=== PATIENT | male | born 1960 | race Two or more races ===

== ENCOUNTER 2016-07-12 12:19 | Emergency (ER) | payer MEDICARE, OTHER ==
--- NOTE | 2016-07-12 12:52 | ER Document Report ---
ED Medical Screen (RME) - General Stated Complaint: COUGH,CONGESTION,ABDOMINAL PAIN Mode of Arrival: Ambulatory Information source: Patient Notes: Patient complains of symptoms for the past 2-1/2 weeks. Patient reports losing over 10 pounds. Patient reports feeling lightheaded with decreased appetite. hx: None I have greeted and performed a rapid initial assessment of this patient. A comprehensive ED assessment and evaluation of the patient, analysis of test results and completion of the medical decision making process will be conducted by additional ED providers. TRAVEL OUTSIDE OF THE [place] IN LAST 30 DAYS: No - Related Data Allergies/Adverse Reactions: No Known Allergies Allergy (Verified 07/12/16 12:48) Past Medical History Musculoskeltal Medical History: Reports Hx Musculoskeletal Deformity, Reports Hx Musculoskeletal Trauma - Immunizations Hx Diphtheria, Pertussis, Tetanus Vaccination: Yes Physical Exam - Vital signs Vitals: Temp Pulse Resp BP Pulse Ox 98.6 F 83 16 114/72 98 07/12/16 12:32 07/12/16 12:32 07/12/16 12:32 07/12/16 12:32 07/12/16 12:32 - Respiratory Respiratory status: No respiratory distress Breath sounds: Nonproductive cough Course - Vital Signs Vital signs: Temp Pulse Resp BP Pulse Ox 98.6 F 83 16 114/72 98 07/12/16 12:32 07/12/16 12:32 07/12/16 12:32 07/12/16 12:32 07/12/16 12:32
[2016-07-12 13:33] LABS: ABSOLUTE EOSINOPHILS # (AUTO) 0.1 10^3/uL (0.0-0.6); ABSOLUTE LYMPHOCYTES (AUTO) 1.4 10^3/uL (0.5-4.7); ABSOLUTE MONOCYTES (AUTO) 0.7 10^3/uL (0.1-1.4); ABSOLUTE NEUT (AUTO) 2.1 10^3/uL (1.7-8.2); BASOPHILS % (AUTO) 0.6 % (0-2); EOSINOPHILS % (AUTO) 3.3 % (0-6); HEMOGLOBIN 15.3 g/dL (13.5-17.0); HGB HCT DIFFERENCE 0.9; LYMPHOCYTES % (AUTO) 32.5 % (13-45); MEAN CORPUSCULAR HEMOGLOBIN 30.2 pg (27.0-33.4); MEAN CORPUSCULAR HGB CONC 33.9 g/dL (32.0-36.0); MEAN CORPUSCULAR VOLUME 89 fl (80-97); MONOCYTES % (AUTO) 15.7 % (3-13); RED BLOOD COUNT 5.05 10^6/uL (4.35-5.55); RED CELL DISTRIBUTION WIDTH 12.9 % (11.5-14.0); SEGMENTED NEUTROPHILS % (AUTO) 47.9 % (42-78); WHITE BLOOD COUNT 4.4 10^3/uL (4.0-10.5)
[2016-07-12 13:40] LABS: APPEARANCE,URINE CLEAR; BILIRUBIN,URINE NEGATIVE (NEGATIVE); GLUCOSE, URINE NEGATIVE (NEGATIVE); KETONES,URINE 20 mg/dL (NEGATIVE); LEUKOCYTE ESTERASE,URINE NEGATIVE (NEGATIVE); NITRITE,URINE NEGATIVE (NEGATIVE); PROTEIN,URINE NEGATIVE (NEGATIVE); URINE SPECIFIC GRAVITY 1.025; UROBILINOGEN,URINE NEGATIVE mg/dL (<2.0)
[2016-07-12 13:52] LABS: ALANINE AMINOTRANSFERASE 29 U/L (21-72); ALBUMIN 3.9 g/dL (3.5-5.0); ALKALINE PHOSPHATASE 84 U/L (38-126); ANION GAP 7 (5-19); ASPARTATE AMINO TRANSFERASE 25 U/L (17-59); BILIRUBIN,TOTAL 0.6 mg/dL (0.2-1.3); BLOOD UREA NITROGEN 13 mg/dL (7-20); CALCIUM 9.7 mg/dL (8.4-10.2); CARBON DIOXIDE 30 mmol/L (22-30); CHLORIDE 102 mmol/L (98-107); CREATININE RESULT 1.05 mg/dL (0.52-1.25); GLUCOSE 87 mg/dL (75-110); LIPASE 48.3 U/L (23-300); POTASSIUM 4.7 mmol/L (3.6-5.0); SODIUM 139.2 mmol/L (137-145)
--- NOTE | 2016-07-12 16:11 | ER Document Report ---
ED General - General Chief Complaint: Cold Symptoms Stated Complaint: COUGH,CONGESTION,ABDOMINAL PAIN Mode of Arrival: Ambulatory Information source: Patient Notes: 56-year-old male presents with complaints of frontal sinus pressure nasal congestion body aches sensation is head is floating. Patient denies any specific neurological deficits. Patient feels like his head is floating TRAVEL OUTSIDE OF THE [place] IN LAST 30 DAYS: No - HPI Onset: Last week Onset/Duration: Persistent Quality of pain: Achy Severity: Mild Pain Level: 1 Associated symptoms: Body/muscle aches, Nonproductive cough, Sinus pain/drainage Exacerbated by: Denies Relieved by: Denies Similar symptoms previously: No Recently seen / treated by doctor: No - Related Data Allergies/Adverse Reactions: No Known Allergies Allergy (Verified 07/12/16 12:48) Past Medical History - General Information source: Patient - Social History Smoking Status: Current Every Day Smoker Cigarette use (# per day): No Chew tobacco use (# tins/day): Yes Smoking Education Provided: No Family History: Other - Father- Colon [place] Patient has suicidal ideation: No Patient has homicidal ideation: No Renal/ Medical History: Denies: Hx Peritoneal Dialysis Musculoskeltal Medical History: Reports Hx Musculoskeletal Deformity, Reports Hx Musculoskeletal Trauma - Immunizations Hx Diphtheria, Pertussis, Tetanus Vaccination: Yes Review of Systems - Review of Systems Notes: PHYSICAL EXAMINATION: GENERAL: Well-appearing, well-nourished and in no acute distress. HEAD: Atraumatic, normocephalic. EYES: Pupils equal round and reactive to light, extraocular movements intact, sclera anicteric, conjunctiva are normal. ENT: Nares patent, oropharynx clear without exudates. Moist mucous membranes. NECK: Normal range of motion, supple without lymphadenopathy LUNGS: Breath sounds clear to auscultation bilaterally and equal. No wheezes rales or rhonchi. HEART: Regular rate and rhythm without murmurs ABDOMEN: Soft, nontender, nondistended abdomen. No guarding, no rebound. No masses appreciated. Musculoskeletal: Normal range of motion, no pitting or edema. No cyanosis. NEUROLOGICAL: Cranial nerves grossly intact. Normal speech, normal gait. Normal sensory, motor exams PSYCH: Normal mood, normal affect. SKIN: Warm, Dry, normal turgor, no rashes or lesions noted. Physical Exam - Vital signs Vitals: Temp Pulse Resp BP Pulse Ox 98.6 F 83 16 114/72 98 07/12/16 12:32 07/12/16 12:32 07/12/16 12:32 07/12/16 12:32 07/12/16 12:32 Course - Re-evaluation Re-evalutation: 07/12/16 16:09 Given that patient is having thick nasal discharge over the past week and a half , it appears to be acute sinusitis. Patient also has sensation of his head floating, denies any fevers. Denies any neurological deficits. I do not believe there is any life-threatening issues at this time. I will discharge him home on antibiotics with close follow-up with his primary care physician. Patient does also admit that over the past 10 years he has had issues with depression, I offered him mental health evaluation but he defers at this time. States he has seen people in the past and will follow up with them Patient denies any suicidal homicidal ideations and I believe he is stable for discharge After performing a Medical Screening Examination, I estimate there is LOW risk for ACUTE GLAUCOMA, TEMPORAL ARTERITIS, MENINGITIS, INCRANIAL HEMORRHAGE, or ISCHEMIC STROKE thus I consider the discharge disposition reasonable. The patient and I have discussed the diagnosis and risks, and we agree with discharging home with close follow-up with the understanding that symptoms and presentations can change. We also discussed returning to the Emergency Department immediately if new or worsening symptoms occur. We have discussed the symptoms which are most concerning (e.g., changing or worsening symptoms, new numbness or weakness, vomiting, fever) that necessitate immediate return. - Vital Signs Vital signs: Temp Pulse Resp BP Pulse Ox 98.6 F 83 16 114/72 98 07/12/16 12:32 07/12/16 12:32 07/12/16 12:32 07/12/16 12:32 07/12/16 12:32 - Laboratory Result Diagrams: 07/12/16 13:05 07/12/16 13:05 Laboratory results interpreted by me: 07/12/16 07/12/16 13:05 13:05 Monocytes % 15.7 H Urine Ketones 20 H Discharge - Discharge Clinical Impression: Acute sinusitis Qualifiers: Sinusitis location: unspecified location Recurrence: recurrent Qualified Code(s ): J01.91 - Acute recurrent sinusitis, unspecified URI (upper respiratory infection) Qualifiers: URI type: unspecified URI Qualified Code(s): J06.9 - Acute upper respiratory infection, unspecified Condition: Stable Disposition: HOME, SELF-CARE Instructions: Sinusitis ([facility]) Additional Instructions: Follow up with your physician tomorrow for further care or return to the ED IMMEDIATELY if symptoms worsen or new concerns occur Prescriptions: Amoxicillin 875 mg PO BID #20 tablet
[2016-07-12 16:13] VITALS: BP 107/74
== END 2016-07-12 16:14 | disposition home or self-care (01) ==
LOC: ER 12:19
DX: J01.91 Acute recurrent sinusitis, unspecified (principal); J06.9 Acute upper respiratory infection, unspecified; F32.9 Major depressive disorder, single episode, unspecified; M79.1 Myalgia; R05 Cough; F17.200 Nicotine dependence, unspecified, uncomplicated
CPT/HCPCS: 36415; 71020; 80053; 81001; 83690; 85025; 87804; 99283

== ENCOUNTER 2016-08-19 11:17 | Emergency (ER) | payer MEDICARE, OTHER ==
--- NOTE | 2016-08-19 11:28 | ER Document Report ---
ED Medical Screen (RME) - General Stated Complaint: ANXIETY Notes: Patient brought in by EMS today for increased anxiety. States recent loss of friend, and mother is hospitalized. Patient has a history of depression/anxiety , bipolar, PTSD, currently does not take any medications and does not have a primary care provider. Patient denies suicidal or homicidal ideation. Patient does state he wonders what the world would be like without him. I have greeted and performed a rapid initial assessment of this patient. A comprehensive ED assessment and evaluation of the patient, analysis of test results and completion of the medical decision making process will be conducted by additional ED providers. TRAVEL OUTSIDE OF THE [place] IN LAST 30 DAYS: No - Related Data Allergies/Adverse Reactions: No Known Allergies Allergy (Verified 08/19/16 11:24) Past Medical History Renal/ Medical History: Denies: Hx Peritoneal Dialysis Musculoskeltal Medical History: Reports Hx Musculoskeletal Deformity, Reports Hx Musculoskeletal Trauma - Immunizations Hx Diphtheria, Pertussis, Tetanus Vaccination: Yes Physical Exam - Notes Notes: Patient with flat affect, and makes no eye contact.
[2016-08-19] MEDS ORDERED: LORAZEPAM 1 MG TABLET PO ONE (12:38)
--- NOTE | 2016-08-19 12:57 | ER Document Report ---
ED Psych Disorder / Suicide - General Mode of Arrival: Medic Information source: Patient TRAVEL OUTSIDE OF THE [place] IN LAST 30 DAYS: No - HPI Patient complains to provider of: Other - Anxiety Onset: Other - Acutely worse over recent weeks Onset was: Gradual Suicide Risk Factors: Bipolar, Depressed Situational problems related to: Recent Associated symptoms: Anxious, Depressed - General Chief Complaint: Anxiety Stated Complaint: ANXIETY Notes: Patient is a 56-year-old male presenting to the emergency department concerned of increased anxiety over recent weeks. Patient has a history of bipolar disorder, PTSD, and depression, but has been unmedicated for over 10 years. Patient states that he has had problems without his medications including being hyper concerned about his health, , and the end of time. Patient states he is constantly dreaming of dying and he cries daily. Patient also has multiple new stressors including his best friend dying recently, and his mother is in the hospital with a possible terminal illness. Patient denies any suicidal ideation. Patient states that he smokes approximately 30 cigarettes a day. (KEMAL MEANS) - Related Data Allergies/Adverse Reactions: No Known Allergies Allergy (Verified 08/19/16 11:24) Past Medical History - General Information source: Patient - Social History Smoking Status: Current Every Day Smoker Chew tobacco use (# tins/day): No Frequency of alcohol use: Occasional Drug Abuse: None Family History: Reviewed & Not Pertinent, Other - Father- Colon [place] Patient has suicidal ideation: No Patient has homicidal ideation: No Renal/ Medical History: Denies: Hx Peritoneal Dialysis Musculoskeltal Medical History: Reports Hx Musculoskeletal Deformity, Reports Hx Musculoskeletal Trauma Psychiatric Medical History: Reports: Hx Anxiety, Hx Bipolar Disorder, Hx Depression - Immunizations Hx Diphtheria, Pertussis, Tetanus Vaccination: Yes Review of Systems - Review of Systems Constitutional: No symptoms reported EENT: No symptoms reported Cardiovascular: No symptoms reported Respiratory: No symptoms reported Gastrointestinal: No symptoms reported Genitourinary: No symptoms reported Male Genitourinary: No symptoms reported Musculoskeletal: No symptoms reported Skin: No symptoms reported Hematologic/Lymphatic: No symptoms reported Neurological/Psychological: See HPI, Depression, Anxiety. denies: Suicidal ideation -: Yes All other systems reviewed and negative Physical Exam - General General appearance: Alert, Other - Poor eye contact - HEENT Head: Normocephalic, Atraumatic Eyes: Normal Pupils: PERRL - Respiratory Respiratory status: No respiratory distress Chest status: Nontender Breath sounds: Normal Chest palpation: Normal - Cardiovascular Rhythm: Regular Heart sounds: Normal auscultation Murmur: No - Abdominal Inspection: Normal Distension: No distension Bowel sounds: Normal Tenderness: Nontender Organomegaly: No organomegaly - Back Back: Normal, Nontender - Extremities General upper extremity: Normal inspection, Nontender General lower extremity: Normal inspection, Nontender, Normal weight bearing - Neurological Neuro grossly intact: Yes Cognition: Normal Orientation: AAOx4 Reynaldo Coma Scale Eye Opening: Spontaneous [place] Coma Scale Verbal: Oriented Reynaldo Coma Scale Motor: Obeys Commands Reynaldo Coma Scale Total: 15 Speech: Normal - Psychological Associated symptoms: Normal affect, Anxious, Depressed - Skin Skin Temperature: Warm Skin Moisture: Dry Skin Color: Normal Course - Re-evaluation Re-evalutation: 08/19/16 14:57 I was looking for the patient when I did not see him in his hallway struck bed. I found that he had been ordered Ativan by another physician. He received the Ativan shortly after I saw him. His spouse had requested something for his nerves while I was in the room, I told her I would prefer that that he wait for the psychology staff to see him first. Shortly after that he was given Ativan without my knowledge. Looking through the nurse's notes I find that the patient had eloped 30 minutes ago, but I was never told of this. (ASTRID BROCK) - Vital Signs Vital signs: Temp Pulse Resp BP Pulse Ox 97.9 F 67 16 97/66 L 100 08/19/16 11:24 08/19/16 11:24 08/19/16 11:24 08/19/16 11:24 08/19/16 11:24 Discharge - Discharge Clinical Impression: Anxiety Disposition: ELOPED Instructions: Anxiety ([facility]) Scribe Attestation: 08/19/16 14:59 I personally performed the services described in the documentation, reviewed and edited the documentation which was dictated to the scribe in my presence, and it accurately records my words and actions. (ASTRID BROCK) Scribe Documentation - Scribe Written by Janae:: Kemal Means 08/19/2016 1252 acting as scribe for :: Marielle
[2016-08-19 14:34] VITALS: BP 97/66
== END 2016-08-19 13:30 | disposition left against medical advice (07) ==
LOC: ER 11:17
DX: F41.9 Anxiety disorder, unspecified (principal); F32.9 Major depressive disorder, single episode, unspecified; F17.210 Nicotine dependence, cigarettes, uncomplicated; Z53.20 Procedure and treatment not carried out because of patient's decision for unspecified reasons
CPT/HCPCS: 99281; A9270

== ENCOUNTER 2019-02-26 05:56 | Observation (INO) | payer MEDICARE, OTHER ==
[2019-02-26 07:49] LABS: ABSOLUTE EOSINOPHILS # (AUTO) 0.2 10^3/uL (0.0-0.6); ABSOLUTE LYMPHOCYTES (AUTO) 2.3 10^3/uL (0.5-4.7); ABSOLUTE MONOCYTES (AUTO) 0.6 10^3/uL (0.1-1.4); ABSOLUTE NEUT (AUTO) 4.1 10^3/uL (1.7-8.2); BASOPHILS % (AUTO) 0.4 % (0-2); EOSINOPHILS % (AUTO) 2.8 % (0-6); HEMATOCRIT 43.2 % (37.9-51.0); HEMOGLOBIN 14.6 g/dL (13.5-17.0); LYMPHOCYTES % (AUTO) 31.7 % (13-45); MEAN CORPUSCULAR HEMOGLOBIN 30.4 pg (27.0-33.4); MEAN CORPUSCULAR HGB CONC 33.9 g/dL (32.0-36.0); MEAN CORPUSCULAR VOLUME 90 fl (80-97); MONOCYTES % (AUTO) 7.7 % (3-13); PLATELET COUNT 252 10^3/uL (150-450); RED BLOOD COUNT 4.82 10^6/uL (4.35-5.55); SEGMENTED NEUTROPHILS % (AUTO) 57.4 % (42-78); TOTAL CELLS COUNTED % (AUTO) 100 %; WHITE BLOOD COUNT 7.1 10^3/uL (4.0-10.5)
[2019-02-26 08:07] LABS: ALBUMIN 4.2 g/dL (3.5-5.0); ALKALINE PHOSPHATASE 80 U/L (38-126); ANION GAP 6 (5-19); ASPARTATE AMINO TRANSFERASE 28 U/L (17-59); BILIRUBIN,DIRECT 0.1 mg/dL (0.0-0.4); BILIRUBIN,TOTAL 0.4 mg/dL (0.2-1.3); BLOOD UREA NITROGEN 18 mg/dL (7-20); CALCIUM 9.7 mg/dL (8.4-10.2); CARBON DIOXIDE 29 mmol/L (22-30); CHLORIDE 105 mmol/L (98-107); GLUCOSE 98 mg/dL (75-110); POTASSIUM 4.9 mmol/L (3.6-5.0); TOTAL PROTEIN 7.3 g/dL (6.3-8.2)
[2019-02-26 08:15] LABS: APPEARANCE,URINE CLEAR; BILIRUBIN,URINE NEGATIVE (NEGATIVE); COLOR,URINE YELLOW; GLUCOSE, URINE NEGATIVE (NEGATIVE); KETONES,URINE NEGATIVE (NEGATIVE); LEUKOCYTE ESTERASE,URINE NEGATIVE (NEGATIVE); NITRITE,URINE NEGATIVE (NEGATIVE); PROTEIN,URINE NEGATIVE (NEGATIVE); UROBILINOGEN,URINE NEGATIVE mg/dL (<2.0)
[2019-02-26] MEDS ORDERED: FENTANYL CITRATE INJ/PF 100 MCG/2 ML AMPUL IV ONE (09:08)
--- NOTE | 2019-02-26 09:11 | ER Document Report ---
ED General - General Chief Complaint: Epigastric Pain Stated Complaint: STOMACH PAIN Time Seen by Provider: 02/26/19 08:50 TRAVEL OUTSIDE OF THE [place] IN LAST 30 DAYS: No - HPI Notes: Patient is a 58-year-old male who presents emergency department for evaluation of epigastric pain. Pain is been ongoing for about 2 days. He states that it seems to be worse at night when he lays down. Every morning at about 330 he wakes up with significant pain. He describes as a pressure. It radiates to his back with position, but otherwise is nonradiating. He had a normal bowel movement yesterday. No fevers or chills. Some very mild nausea but no emesis. Normal urination. - Related Data Allergies/Adverse Reactions: No Known Allergies Allergy (Verified 08/19/16 11:24) Home Medications: None Past Medical History - General Information source: Patient - Social History Smoking Status: Current Every Day Smoker Frequency of alcohol use: Rare Family History: Reviewed & Not Pertinent, DM, Other - Father- Colon [place] Patient has suicidal ideation: No Patient has homicidal ideation: No Renal/ Medical History: Denies: Hx Peritoneal Dialysis Musculoskeletal Medical History: Reports Hx Musculoskeletal Deformity, Reports Hx Musculoskeletal Trauma Psychiatric Medical History: Reports: Hx Anxiety, Hx Bipolar Disorder, Hx Depression - Immunizations Hx Diphtheria, Pertussis, Tetanus Vaccination: Yes Review of Systems - Review of Systems Constitutional: No symptoms reported EENT: No symptoms reported Cardiovascular: No symptoms reported Respiratory: No symptoms reported Gastrointestinal: See HPI Genitourinary: No symptoms reported Musculoskeletal: No symptoms reported Skin: No symptoms reported Neurological/Psychological: No symptoms reported Physical Exam - Vital signs Vitals: Temp Pulse Resp BP Pulse Ox 98.4 F 65 16 117/70 99 02/26/19 06:02 02/26/19 06:02 02/26/19 06:02 02/26/19 06:02 02/26/19 06:02 - Notes Notes: Vital signs reviewed, please refer to chart. Head is normocephalic, atraumatic. Pupils equal round, reactive to light. Neck is supple without meningismus. Heart is regular rate and rhythm. Lungs are clear to auscultation bilaterally. Abdomen is soft, moderately tender in the epigastrium and right upper quadrant without rebound or guarding, normoactive bowel sounds throughout. Extremities without cyanosis, clubbing. Posterior calves are nontender. Peripheral pulses are equal. Skin is warm and dry. Patient is awake, alert, neurological exam is nonfocal. Course - Re-evaluation Re-evalutation: 02/26/19 09:10 Presents emergency department for evaluation. Laboratory investigations were obtained. The patient does have an elevated lipase. Did order pain medication, CT scan of the abdomen pelvis with IV contrast. Patient was told that he needs to remain n.p.o., we will continue to monitor. 02/26/19 12:58 Laboratory investigations did in fact confirm pink otitis, but CT scan failed to reveal any significant process. I do not have a clear etiology for this patient's pancreatitis at this time, but I do not believe he is surgical. He remained stable. He is kept n.p.o. He is given IV fluids. I spoke with Dr. Lacey, then Anna Browning, ANTONIO, who will admit the patient for further care. - Vital Signs Vital signs: Temp Pulse Resp BP Pulse Ox 98.4 F 65 16 117/70 99 02/26/19 06:02 02/26/19 06:02 02/26/19 06:02 02/26/19 06:02 02/26/19 06:02 - Laboratory Result Diagrams: 02/26/19 07:35 02/26/19 07:35 Laboratory results interpreted by me: 02/26/19 07:35 Lipase 1003.2 H Discharge - Discharge Clinical Impression: Acute pancreatitis Condition: Stable Disposition: ADMITTED OBSERVATION Admitting Provider: Deepthi (Hospitalist) Unit Admitted: Medical Floor
--- NOTE | 2019-02-26 10:13 | RADIOLOGY REPORT (SQ) ---
EXAM DESCRIPTION: CT ABD/PELVIS WITH IV ONLY COMPLETED DATE/TIME: 02/26/2019 9:52 am REASON FOR STUDY: pancreatitis COMPARISON: None. TECHNIQUE: CT scan of the abdomen and pelvis performed using helical scanning technique with dynamic intravenous contrast injection. No oral contrast. Images reviewed with lung, soft tissue, and bone windows. Reconstructed coronal and sagittal MPR images reviewed. Delayed images for evaluation of the urinary system also acquired. All images stored on PACS. All CT scanners at this facility use dose modulation, iterative reconstruction, and/or weight based d osing when appropriate to reduce radiation dose to as low as reasonably achievable (ALARA). [facility]: Dose Right [facility]: CareDose [facility]: Dose Right [facility]: Teradose 4D [facility]: Bedi OralCare CONTRAST TYPE AND DOSE: Contrast/concentration: Isovue 350.00 mg/ml; Total Contrast Delivered: 89.0 ml; Total Saline Delivered: 70.0 ml RENAL FUNCTION: Creatinine 1.14 milligrams/deciliter RADIATION DOSE: CT Rad equipment meets quality standard of care and radiation dose reduction techniq ues were employed. CTDIvol: 4.1 - 4.8 mGy. DLP: 418 mGy-cm.. LIMITATIONS: None. FINDINGS: LOWER CHEST: Fat containing left Bochdalek's hernia. There is no basilar consolidation, p leural effusion or pneumothorax. There is mild cardiomegaly ; there is no pericardial effusion. LIVER: The liver morphology is non cirrhotic. The relative hypoattenuation of hepatic parenchyma com pared to the splenic parenchyma on the portal venous phase is suggestive of hepatic steatosis. The s ubcentimeter hypodensities scattered throughout the right hepatic lobe are nonspecific and are consid ered too small to characterize. The portal and hepatic veins are patent. SPLEEN: No splenomegaly. PANCREAS: No acute abnormality of the pancreas GALLBLADDER: No abnormality that is apparent on CT. ADRENAL GLANDS: No mass or focal asymmetry. RIGHT KIDNEY AND URETER: No solid masses, hydronephrosis, nephrolithiasis, hydroureter or ureterolith iasis. 1.9 cm simple cyst that projects from the inferior medial cortex of the kidney. LEFT KIDNEY AND URETER: No solid masses, hydronephrosis, nephrolithiasis, hydroureter or ureterolithi asis. AORTA AND VESSELS: No aneurysmal dilatation or dissection of the abdominal aorta. The abdominopelvic vasculature is patent RETROPERITONEUM: No retroperitoneal adenopathy, mass or hemorrhage BOWEL AND PERITONEAL CAVITY: No evidence of obstruction, bowel wall thickening, or pericolonic/ perie nteric inflammation. No mesenteric adenopathy or free intraperitoneal fluid. APPENDIX: Normal. PELVIS: The urinary bladder is distended and normal in appearance. The prostate gland is normal in s ize. There is no pelvic adenopathy, free fluid or mass. ABDOMINAL WALL: No masses or hernias. BONES: Degenerative spondylosis and facet arthropathy of the lumbar spine with grade 1 retrolisthesis of L5 relative to S1. There is no fracture or osseous lesion. OTHER: No other finding. IMPRESSION: 1. No acute intra-abdominal abnormality. 2. Mild cardiomegaly. TECHNICAL DOCUMENTATION: JOB ID: [id number] Quality ID # [id number]: Final reports with documentation of one or more dose reduction techniques (e.g., Au tomated exposure control, adjustment of the mA and/or kV according to patient size, use of iterative reconstruction technique) 2010 [employer]- All Rights Reserved Reading location - IP/workstation name: [email or web address]
[2019-02-26] MEDS ORDERED: NORMAL SALINE 1000 ML 1,000 ML IV ONE (11:42)
[2019-02-26] MEDS ORDERED: MAG HYDROX/AL HYDROX/SIMETH SUSP 30 ML UDCUP PO PRN (14:06)
[2019-02-26] MEDS ORDERED: OXYCODONE-ACETAMINOPHEN 5-325 MG TABLET PO PRN (14:06)
[2019-02-26] MEDS ORDERED: GLUCAGON,HUMAN RECOMB 1 MG INJ SUBCUT PRN (14:06)
[2019-02-26] MEDS ORDERED: ACETAMINOPHEN 325 MG TABLET PO PRN (14:06)
[2019-02-26] MEDS ORDERED: DEXTROSE 50%-WATER 25 GM/50 ML DISP.SYRIN IV PRN ×2 (14:06)
[2019-02-26] MEDS ORDERED: PROMETHAZINE HCL INJ 25 MG/1 ML VIAL IV PRN (14:06)
[2019-02-26] MEDS ORDERED: DEXTROSE 40% GEL 15 GM TUBE PO PRN ×2 (14:06)
[2019-02-26] MEDS ORDERED: IPRATROPIUM/ALBUTEROL 0.5-2.5 MG/3 ML AMPUL NEB PRN (14:06)
[2019-02-26] MEDS ORDERED: ONDANSETRON HCL INJ/PF 4 MG/2 ML SDV IV PRN (14:06)
[2019-02-26] MEDS ORDERED: MORPHINE SULFATE 10 MG/ML INJ IV PRN (14:52)
--- NOTE | 2019-02-26 15:02 | PDOC H&P ---
History of Present Illness Admission Date/PCP: 02/26/19 13:14 Patient complains of: Abdominal pain History of Present Illness: MARLIN LESTER is a 58 year old male who reports that his only past medical history is tobacco dependence with continuous use (1-1/2 packs daily) who presented to the emergency department with report of 2 days of epigastric abdominal pain, worse at night and after meals, associated with nausea but no emesis. He reports anorexia related to discomfort. He denies fever, chills, chest pain, dyspnea, diarrhea. He does confirm binge drinking on Monday (day prior to onset of symptoms); he reports that he rarely drinks alcohol. Evaluation in the emergency department revealed stable vital signs, unremarkable CBC, chemistry, and urinalysis. However lipase was noted to be elevated to 1003. CT of the abdomen and pelvis demonstrated mild cardiomegaly but no acute intra-abdominal abnormalities. Specifically there were no acute abnormalities to the pancreas or gallbladder on CT imagining. The patient was provided analgesics and a 1 L normal saline bolus. He is referred to the hospitalist service for admission and management of the above- stated complaints and findings. Past Medical History Cardiac Medical History: Reports: None Pulmonary Medical History: Reports: None EENT Medical History: Reports: None Neurological Medical History: Reports: None Endocrine Medical History: Reports: None Renal/ Medical History: Reports: None Malignancy Medical History: Reports: None GI Medical History: Reports: None Musculoskeltal Medical History: Reports: None Skin Medical History: Reports: None Psychiatric Medical History: Reports: Tobacco Dependency Traumatic Medical History: Reports: None Hematology: Reports: None Infectious Medical History: Reports: None Past Surgical History Past Surgical History: Reports: None Social History Information Source: Patient Lives with: Alone Smoking Status: Current Every Day Smoker Cigarettes Packs Per Day: 1.5 Frequency of Alcohol Use: Rare Last Alcohol Use: 02/23/19 Hx Recreational Drug Use: No Drugs: None Hx Prescription Drug Abuse: No - Advance Directive Resuscitation Status: Full Code Family History Family History: Reviewed & Not Pertinent, DM, Other - Father- Colon CA Parental Family History Reviewed: Yes Children Family History Reviewed: Yes Sibling(s) Family History Reviewed.: Yes Medication/Allergy Home Medications: No Home Medications 02/26/19 Allergies/Adverse Reactions: No Known Allergies Allergy (Verified 08/19/16 11:24) Review of Systems Constitutional: PRESENT: anorexia. ABSENT: chills, fever(s), headache(s), weight gain, weight loss Eyes: ABSENT: visual disturbances Ears: ABSENT: hearing changes Cardiovascular: ABSENT: chest pain, dyspnea on exertion, edema, orthropnea, palpitations Respiratory: ABSENT: cough, hemoptysis Gastrointestinal: PRESENT: abdominal pain, bloating, heartburn, nausea. ABSENT: constipation, diarrhea, hematemesis, hematochezia, vomiting Genitourinary: ABSENT: dysuria, hematuria Musculoskeletal: ABSENT: joint swelling Integumentary: ABSENT: rash, wounds Neurological: ABSENT: abnormal gait, abnormal speech, confusion, dizziness, focal weakness, syncope Psychiatric: ABSENT: anxiety, depression, homidical ideation, suicidal ideation Endocrine: ABSENT: cold intolerance, heat intolerance, polydipsia, polyuria Hematologic/Lymphatic: ABSENT: easy bleeding, easy bruising Physical Exam Vital Signs: Temp Pulse Resp BP Pulse Ox 98.4 F 65 16 117/70 99 02/26/19 06:02 02/26/19 06:02 02/26/19 06:02 02/26/19 06:02 02/26/19 06:02 Intake & Output 02/25/19 02/26/19 02/27/19 06:59 06:59 06:59 Intake Total 1000 Balance 1000 Weight 77.8 kg General appearance: PRESENT: no acute distress, cooperative, well-developed, well-nourished Head exam: PRESENT: atraumatic, normocephalic Eye exam: PRESENT: conjunctiva pink, EOMI, PERRLA. ABSENT: scleral icterus Ear exam: PRESENT: normal external ear exam Mouth exam: PRESENT: moist, tongue midline Neck exam: ABSENT: carotid bruit, JVD, lymphadenopathy, thyromegaly Respiratory exam: PRESENT: clear to auscultation adela, symmetrical, unlabored. ABSENT: rales, rhonchi, wheezes Cardiovascular exam: PRESENT: RRR, +S1, +S2. ABSENT: diastolic murmur, rubs, systolic murmur Pulses: PRESENT: normal dorsalis pedis pul Vascular exam: PRESENT: normal capillary refill GI/Abdominal exam: PRESENT: normal bowel sounds, soft. ABSENT: distended, guarding, mass, organolmegaly, rebound, tenderness Rectal exam: PRESENT: deferred Extremities exam: PRESENT: full ROM. ABSENT: calf tenderness, clubbing, pedal edema Neurological exam: PRESENT: alert, awake, oriented to person, oriented to place, oriented to time, oriented to situation, CN II-XII grossly intact. ABSENT: motor sensory deficit Psychiatric exam: PRESENT: appropriate affect, normal mood. ABSENT: homicidal ideation, suicidal ideation Skin exam: PRESENT: dry, intact, warm. ABSENT: cyanosis, rash Results Laboratory Results: 02/26/19 07:35 02/26/19 07:35 02/26/19 02/26/19 02/26/19 07:35 07:35 07:35 WBC 7.1 RBC 4.82 Hgb 14.6 Hct 43.2 MCV 90 MCH 30.4 MCHC 33.9 RDW 13.0 Plt Count 252 Seg Neutrophils % 57.4 Sodium 140.2 Potassium 4.9 Chloride 105 Carbon Dioxide 29 Anion Gap 6 BUN 18 Creatinine 1.14 Est GFR ( Amer) > 60 Glucose 98 Calcium 9.7 Total Bilirubin 0.4 AST 28 Alkaline Phosphatase 80 Total Protein 7.3 Albumin 4.2 Lipase 1003.2 H Urine Color YELLOW Urine Appearance CLEAR Urine pH 6.0 Ur Specific [place] 1.020 Urine Protein NEGATIVE Urine Glucose (UA) NEGATIVE Urine Ketones NEGATIVE Urine Blood NEGATIVE Urine Nitrite NEGATIVE Ur Leukocyte Esterase NEGATIVE Urine WBC (Auto) 1 Urine RBC (Auto) 1 Impressions: Abdomen/Pelvis CT 02/26/19 09:08 IMPRESSION: 1. No acute intra-abdominal abnormality. 2. Mild cardiomegaly. Assessment and Plan - Diagnosis (1) Acute pancreatitis Qualifiers: Pancreatitis type: unspecified pancreatitis type Is this a current diagnosis for this admission?: Yes (2) Tobacco dependence Is this a current diagnosis for this admission?: Yes (3) Nausea Is this a current diagnosis for this admission?: Yes (4) Abdominal pain Qualifiers: Abdominal location: epigastric Qualified Code(s): R10.13 - Epigastric pain Is this a current diagnosis for this admission?: Yes - Plan Summary Summary: The patient is admitted to the medical floor. He is placed in n.p.o. status with the exception of ice chips. He will be provided generous IV fluids. Analgesics and antiemetics as needed. Follow-up chemistry and lipase in the morning. Additionally will check A1c and lipid panel; however, I suspect that the patient's pancreatitis is related to his binge drinking the night prior to onset of his symptoms. If lipase is stable or improved tomorrow; will advance to clear liquid diet in the morning. If tolerates well may consider discharge to home with oral medications for further symptom management. He is counseled on smoking cessation; nicotine replacement therapies are provided. - Time Time Spent with patient: 35 or more minutes Smoking Cessation Education: 3 to 10 minutes Medications reviewed and adjusted accordingly: Yes Anticipated discharge: Home Within: within 24 hours
[2019-02-26] MEDS: NICOTINE 21 MG/24 HR PATCH.TD24 TD SCH (15:23)
[2019-02-26 17:06] LABS: CHOLESTEROL 154.24 mg/dL (0-200); TRIGLYCERIDES 42 mg/dL (<150)
[2019-02-26 17:17] LABS: DIRECT LDL 99 mg/dL (<100)
[2019-02-26] MEDS: NORMAL SALINE 1000 ML 1,000 ML IV PRN (20:12)
[2019-02-26] MEDS: HEPARIN SOD (PORCINE) 5,000 UNIT/ML 1 ML VIAL SUBCUT SCH (21:39)
[2019-02-26] MEDS ORDERED: MELATONIN 3 MG TABLET PO SCH (22:00)
[2019-02-27] MEDS: NORMAL SALINE 1000 ML 1,000 ML IV PRN (02:30)
[2019-02-27] MEDS: HEPARIN SOD (PORCINE) 5,000 UNIT/ML 1 ML VIAL SUBCUT SCH (05:44)
[2019-02-27 07:59] LABS: HEMATOCRIT 40.1 % (37.9-51.0); HEMOGLOBIN 13.7 g/dL (13.5-17.0); MEAN CORPUSCULAR HEMOGLOBIN 30.2 pg (27.0-33.4); MEAN CORPUSCULAR HGB CONC 34.1 g/dL (32.0-36.0); MEAN CORPUSCULAR VOLUME 89 fl (80-97); PLATELET COUNT 222 10^3/uL (150-450); RED BLOOD COUNT 4.53 10^6/uL (4.35-5.55); RED CELL DISTRIBUTION WIDTH 12.8 % (11.5-14.0); WHITE BLOOD COUNT 5.6 10^3/uL (4.0-10.5)
[2019-02-27 08:17] VITALS: BP 116/66
[2019-02-27 08:21] LABS: ANION GAP 7 (5-19); BLOOD UREA NITROGEN 12 mg/dL (7-20); CALCIUM 8.8 mg/dL (8.4-10.2); CARBON DIOXIDE 24 mmol/L (22-30); CHLORIDE 107 mmol/L (98-107); POTASSIUM 4.5 mmol/L (3.6-5.0)
[2019-02-27 08:27] LABS: GLUCOSE 65 mg/dL (75-110)
[2019-02-27] MEDS ORDERED: PANTOPRAZOLE SODIUM 40 MG VIAL IV SCH (10:00)
[2019-02-27] MEDS: NICOTINE 21 MG/24 HR PATCH.TD24 TD SCH (10:07)
--- NOTE | 2019-03-02 12:32 | PDOC DISCHARGE SUMMARY ---
Impression - Admit/DC Date/PCP Admission Date/Primary Care Provider: 02/26/19 13:14 Discharge Date: 02/27/19 - Discharge Diagnosis (1) Acute pancreatitis Is this a current diagnosis for this admission?: Yes (2) Tobacco dependence Is this a current diagnosis for this admission?: Yes (3) Nausea Is this a current diagnosis for this admission?: Yes (4) Abdominal pain Is this a current diagnosis for this admission?: Yes - Additional Information Resuscitation Status: Full Code Discharge Diet: As Tolerated, Regular Discharge Activity: Activity As Tolerated, Balance Activity w/Rest, Slowly Incr ease Activity Referrals: JEREMY MORAN MD [NO LOCAL MD] - 03/08/19 10:30 am Home Medications: Acetaminophen [Tylenol 325 mg Tablet] 650 mg PO Q4HP PRN tablet 02/27/19 Nicotine [Nicoderm 21 mg/24 Hr Transderm Patch] 1 each TD DAILY #0 patch.td24 02/27/19 History of Present Illiness History of Present Illness: MARLIN LESTER is a 58 year old male who reports that his only past medical history is tobacco dependence with continuous use (1-1/2 packs daily) who presented to the emergency department with report of 2 days of epigastric abdominal pain, worse at night and after meals, associated with nausea but no emesis. He reports anorexia related to discomfort. He denies fever, chills, chest pain, dyspnea, diarrhea. He does confirm binge drinking on Monday (day prior to onset of symptoms); he reports that he rarely drinks alcohol. Evaluation in the emergency department revealed stable vital signs, unremarkable CBC, chemistry, and urinalysis. However lipase was noted to be elevated to 1003. CT of the abdomen and pelvis demonstrated mild cardiomegaly but no acute intra-abdominal abnormalities. Specifically there were no acute abnormalities to the pancreas or gallbladder on CT imagining. The patient was provided analgesics and a 1 L normal saline bolus. He is referred to the hospitalist service for admission and management of the above- stated complaints and findings. Hospital Course Hospital Course: The patient was admitted to the medical floor. He was placed in n.p.o. status with the exception of ice chips and provided generous IV fluids. Analgesics and antiemetics as needed. Follow-up chemistry and lipase in the morning were normal. Patient's A1c was 5.7%. Lipid panel was normal. I suspect that the patient's pancreatitis is related to his binge drinking the night prior to onset of his symptoms. At time of discharge, the patient was in stable condition, asymptomatic, and tolerating a regular diet. He is discharged home in stable condition with self-care. He is advised to follow-up with his primary care provider within 1 week. He is instructed to avoid all alcohol intake, and eat a low acidic/fat diet. He is encouraged to return to the emergency department as needed for concerning symptoms. Physical Exam Vital Signs: Temp Pulse Resp BP Pulse Ox 97.5 F 95 17 116/66 95 02/27/19 11:27 02/27/19 11:27 02/27/19 11:27 02/27/19 11:27 02/27/19 11:27 Intake & Output 02/26/19 02/27/19 02/28/19 06:59 06:59 06:59 Intake Total 1945 Output Total 0 Balance 1945 Weight 77.8 kg 77.4 kg General appearance: PRESENT: no acute distress, well-developed, well-nourished Head exam: PRESENT: atraumatic, normocephalic Eye exam: PRESENT: conjunctiva pink, EOMI, PERRLA. ABSENT: scleral icterus Ear exam: PRESENT: normal external ear exam Mouth exam: PRESENT: moist, tongue midline Neck exam: ABSENT: carotid bruit, JVD, lymphadenopathy, thyromegaly Respiratory exam: PRESENT: clear to auscultation adela. ABSENT: rales, rhonchi, wheezes Cardiovascular exam: PRESENT: RRR. ABSENT: diastolic murmur, rubs, systolic murmur Pulses: PRESENT: normal dorsalis pedis pul Vascular exam: PRESENT: normal capillary refill GI/Abdominal exam: PRESENT: normal bowel sounds, soft. ABSENT: distended, guarding, mass, organolmegaly, rebound, tenderness Rectal exam: PRESENT: deferred Extremities exam: PRESENT: full ROM. ABSENT: calf tenderness, clubbing, pedal edema Neurological exam: PRESENT: alert, awake, oriented to person, oriented to place, oriented to time, oriented to situation, CN II-XII grossly intact. ABSENT: motor sensory deficit Psychiatric exam: PRESENT: appropriate affect, normal mood. ABSENT: homicidal ideation, suicidal ideation Skin exam: PRESENT: dry, intact, warm. ABSENT: cyanosis, rash Results Laboratory Results: WBC 5.6 10^3/uL (4.0-10.5) 02/27/19 06:57 RBC 4.53 10^6/uL (4.35-5.55) 02/27/19 06:57 Hgb 13.7 g/dL (13.5-17.0) 02/27/19 06:57 Hct 40.1 % (37.9-51.0) 02/27/19 06:57 MCV 89 fl (80-97) 02/27/19 06:57 MCH 30.2 pg (27.0-33.4) 02/27/19 06:57 MCHC 34.1 g/dL (32.0-36.0) 02/27/19 06:57 RDW 12.8 % (11.5-14.0) 02/27/19 06:57 Plt Count 222 10^3/uL (150-450) 02/27/19 06:57 Lymph % (Auto) 31.7 % (13-45) 02/26/19 07:35 [place] % (Auto) 7.7 % (3-13) 02/26/19 07:35 Eos % (Auto) 2.8 % (0-6) 02/26/19 07:35 Baso % (Auto) 0.4 % (0-2) 02/26/19 07:35 Absolute Neuts (auto) 4.1 10^3/uL (1.7-8.2) 02/26/19 07:35 Absolute Lymphs (auto) 2.3 10^3/uL (0.5-4.7) 02/26/19 07:35 Absolute Monos (auto) 0.6 10^3/uL (0.1-1.4) 02/26/19 07:35 Absolute Eos (auto) 0.2 10^3/uL (0.0-0.6) 02/26/19 07:35 Absolute Basos (auto) 0.0 10^3/uL (0.0-0.2) 02/26/19 07:35 Seg Neutrophils % 57.4 % (42-78) 02/26/19 07:35 Sodium 137.6 mmol/L (137-145) 02/27/19 06:57 Potassium 4.5 mmol/L (3.6-5.0) 02/27/19 06:57 Chloride 107 mmol/L (98-107) 02/27/19 06:57 Carbon Dioxide 24 mmol/L (22-30) 02/27/19 06:57 Anion Gap 7 (5-19) 02/27/19 06:57 BUN 12 mg/dL (7-20) 02/27/19 06:57 Creatinine 1.02 mg/dL (0.52-1.25) 02/27/19 06:57 Est GFR ( Amer) > 60 (>60) 02/27/19 06:57 Est GFR (MDRD) Non-Af > 60 (>60) 02/27/19 06:57 Glucose 65 mg/dL (75-110) L 02/27/19 06:57 POC Glucose 71 mg/dL (70-110) 02/27/19 08:31 Hemoglobin A1c % 5.7 % (4.7-6.0) 02/26/19 07:35 Calcium 8.8 mg/dL (8.4-10.2) 02/27/19 06:57 Total Bilirubin 0.4 mg/dL (0.2-1.3) 02/26/19 07:35 Direct Bilirubin 0.1 mg/dL (0.0-0.4) 02/26/19 07:35 Neonat Total Bilirubin Not Reportable 02/26/19 07:35 Neonat Direct Bilirubin Not Reportable 02/26/19 07:35 Neonat Indirect Bili Not Reportable 02/26/19 07:35 AST 28 U/L (17-59) 02/26/19 07:35 ALT 18 U/L (<50) 02/26/19 07:35 Alkaline Phosphatase 80 U/L (38-126) 02/26/19 07:35 Total Protein 7.3 g/dL (6.3-8.2) 02/26/19 07:35 Albumin 4.2 g/dL (3.5-5.0) 02/26/19 07:35 Triglycerides 42 mg/dL (<150) 02/26/19 07:35 Cholesterol 154.24 mg/dL (0-200) 02/26/19 07:35 LDL Cholesterol Direct 99 mg/dL (<100) 02/26/19 07:35 VLDL Cholesterol 8.0 mg/dL (10-31) L 02/26/19 07:35 HDL Cholesterol 49 mg/dL (>40) 02/26/19 07:35 Lipase 254.1 U/L (23-300) 02/27/19 06:57 Urine Color YELLOW 02/26/19 07:35 Urine Appearance CLEAR 02/26/19 07:35 Urine pH 6.0 (5.0-9.0) 02/26/19 07:35 Ur Specific [place] 1.020 02/26/19 07:35 Urine Protein NEGATIVE mg/dL (NEGATIVE) 02/26/19 07:35 Urine Glucose (UA) NEGATIVE mg/dL (NEGATIVE) 02/26/19 07:35 Urine Ketones NEGATIVE mg/dL (NEGATIVE) 02/26/19 07:35 Urine Blood NEGATIVE (NEGATIVE) 02/26/19 07:35 Urine Nitrite NEGATIVE (NEGATIVE) 02/26/19 07:35 Urine Bilirubin NEGATIVE (NEGATIVE) 02/26/19 07:35 Urine Urobilinogen NEGATIVE mg/dL (<2.0) 02/26/19 07:35 Ur Leukocyte Esterase NEGATIVE (NEGATIVE) 02/26/19 07:35 Urine WBC (Auto) 1 /HPF 02/26/19 07:35 Urine RBC (Auto) 1 /HPF 02/26/19 07:35 Urine Mucus (Auto) RARE /LPF 02/26/19 07:35 Urine Ascorbic Acid NEGATIVE (NEGATIVE) 02/26/19 07:35 Impressions: Abdomen/Pelvis CT 02/26/19 09:08 IMPRESSION: 1. No acute intra-abdominal abnormality. 2. Mild cardiomegaly. Stroke Is this a Stroke Patient?: No Acute Heart Failure - Is this a Heart Failure Patient?: No
== END 2019-02-27 11:58 | disposition home or self-care (01) ==
LOC: ER 05:56 → EH 13:14 → 4N 17:58
PROVIDERS: ADMIT Internal Medicine; ATTEND Internal Medicine
DX: K85.90 Acute pancreatitis without necrosis or infection, unspecified (principal); F17.200 Nicotine dependence, unspecified, uncomplicated; I51.7 Cardiomegaly; F31.9 Bipolar disorder, unspecified; F41.9 Anxiety disorder, unspecified; Z83.3 Family history of diabetes mellitus
CPT/HCPCS: 99285; 96360; 36415 ×2; 82962; 83690 ×2; 85025; 85027; 80048; 80053; 81001; 83036; 80061; 74177; G0378 ×3; J7030 ×2; A9270; J3490